=== PATIENT | male | born 1995 | race Caucasian/White ===

== ENCOUNTER → 2018-08-19 | Outpatient (CLI) | payer OTHER ==
--- NOTE | 2018-08-19 09:34 | KCIC ---
CT of the paranasal sinuses without contrast 08/19/2018 INDICATION: Chronic sinusitis. COMPARISON STUDY: None. Technique multidetector CT imaging of the paranasal sinuses was performed without contrast. FINDINGS: The paranasal sinuses are clear. No fluid levels or mucosal thickening is identified within the paranasal sinuses. No erosive or hypertrophic bony changes are seen. Mild rightward deviation of the nasal septum is seen. Ostiomeatal units are patent. Mild hypertrophic changes of the middle and inferior turbinate are seen on the right. Visualized orbits are grossly unremarkable. IMPRESSION: 1. No evidence of acute or chronic sinusitis 2. Mild rightward septal deviation with hypertrophy of the right middle and inferior turbinates CT DOSING PQRS STATEMENT: One or more of the following individualized dose reduction techniques were utilized for this examination: 1. Automated exposure control 2. Adjustment of the mA and/or kV according to patient size 3. Use of iterative reconstruction technique Electronically signed by: Massimo Hughes MD (08/19/2018 9:30 AM) [id number]
== END | disposition home or self-care (01) ==
LOC: KCIC CT 08:04
PROVIDERS: ATTEND Family Medicine
DX: J34.2 Deviated nasal septum (principal); J34.3 Hypertrophy of nasal turbinates
CPT/HCPCS: 70486